=== PATIENT | female | born 1990 | race Caucasian/White ===

== ENCOUNTER 2016-11-29 14:54 | Emergency (ER) | payer OTHER ==
--- NOTE | 2016-11-29 17:51 | ED CLINICAL REPORT ---
Clinical Report - Physicians/Mid Levels [facility] [address] [place] [address] 11/29/2016 14:57 Patient: KAYCEE FISHER Time Seen: 16:03; initial patient contact. Arrived- By private vehicle. Historian- patient. HISTORY OF PRESENT ILLNESS Chief Complaint: VAGINAL BLEEDING. (( pt states she had a heavy episode of vaginal bleeding on with passing clots. She is unsure if she could be . States she had no bleeding for the rest of or yesterday. 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 States she doesn't feel like she is on her period right now, as usually she has severe cramping with menses). Onset. (2 days ago). pt is unsure if bleeding is actually vaginal or possibly rectal as it also seems to be happening when straining to have a bowel movement.). Still present. The patient has had pelvic pain, lower back pain and abnormal bleeding. No abdominal pain, missed period(s), pain with urination, urinary frequency or urgency of urination. Sexually active. Does not use control measures. Denies current . Similar symptoms previously: None. Recent medical care: Not recently seen/assessed. REVIEW OF SYSTEMS No nausea, vomiting, diarrhea or black stools. All systems otherwise negative, except as recorded above. PAST HISTORY See nurses notes. Problems: Fall. Contusion. Laceration. Tetanus Status. Additional Surgeries: no known surgeries. Medications: None. Allergies: No Known Drug Allergy. SOCIAL HISTORY Alcohol use. History of drug use: marijuana. FAMILY HISTORY Negative. ADDITIONAL NOTES The nursing notes have been reviewed with agreement regarding the chief complaint, HPI, ROS, PMH and patient medications and allergies. PHYSICAL EXAM Vital Signs: 11/29/2016 15:36 BP: 121/77. HR: 81. RR: 16. O2 saturation: 99%. Temp: 98.4 F. Have been reviewed. Appearance: Alert. Oriented X3. No acute distress. HEENT: Normal external inspection. ENT: Pharynx normal. Neck: Neck supple. CVS: Heart sounds normal. Abdomen: Soft and nontender. No organomegaly. No mass. : External inspection normal. Speculum exam normal. No vaginal discharge or bleeding. Cervical os closed. No cervicitis. Bimanual exam normal. No tenderness present on bimanual exam. Uterus not enlarged. No uterine tenderness. No tenderness with movement of the cervix. No pelvic mass. Rectal: Weakly heme-positive stool; hemoccult quality assurance advisor check passed. (POC test reference range: negative). No blood visibly present. Rectal exam nontender. Skin: Skin warm and dry. Normal skin color. No rash. Normal skin turgor. Extremities: No lower extremity edema. Neuro: Oriented X 3. LABS, X-RAYS, AND EKG Laboratory Tests: Urine: (RICCI: 11/29/2016 15:42) ( [facility] 11/29/2016 16:24) Final results Test Result Flag Units (Reference) URINE NEGATIVE CBC w Diff: (RICCI: 11/29/2016 16:44) ( [facility] 11/29/2016 17:10) Final results Test Result Flag Units (Reference) WHITE BLOOD COUNT 8.0 K/uL (4.5-11.5) RED BLOOD COUNT 4.34 M/uL (4.00-5.20) HEMOGLOBIN 13.1 gm/dL (12.0-16.0) HEMATOCRIT 38.7 % (36.0-46.0) MEAN CELL VOLUME 89 fL (80-100) MEAN CORPUSCULAR HGB 30 pg (26-34) MEAN CORPUSCULAR HGB CONC 34 g/dL (31-37) RED CELL DISTRIBUTION WIDTH 13.6 % (11.6-14.8) PLATELET COUNT 298 K/uL (150-400) NEUTROPHIL % 59.6 % (50-75) LYMPH % 28.1 % (25-40) MONO % 10.6 % (3-14) EOSINOPHIL % 1.3 % (0-4) BASOPHIL % 0.4 % (0-2) CMP: (RICCI: 11/29/2016 16:44) ( [facility] 11/29/2016 17:21) Final results Test Result Flag Units (Reference) GLUCOSE 103 mg/dL (70-110) BUN 13 mg/dL (7-18) CREATININE 0.7 mg/dL (0.6-1.3) Estimated GFR >60 mL/min Estimated GFR- >60 mL/min Note: Persistent reduction over 3 months in eGFR<60 mL/min/1.73 m2 defines CKD. Patients with eGFR values>=60 mL/min/1.73 m2 may also have CKD if evidence ofpersistent proteinuria. Additional information may be foundat www.kidney.org. SODIUM 141 mmol/L (136-145) POTASSIUM 3.8 mmol/L (3.5-5.1) CHLORIDE 102 mmol/L (98-107) CARBON DIOXIDE 27 mmol/L (21-32) CALCIUM 8.9 mg/dL (8.5-10.1) TOTAL PROTEIN 7.8 g/dL (6.4-8.2) ALBUMIN 4.0 g/dL (3.3-5.0) BILIRUBIN, TOTAL 0.3 mg/dL (0.0-1.0) ALKALINE PHOSPHATASE 61 U/L (46-116) AST (SGOT) 13 L U/L (15-37) ALT (SGPT) 21 U/L (12-78) . PROGRESS AND PROCEDURES Course of Care: pt is hemodynamically stable, with suspected rectal bleed as opposed to vaginal bleed as her vaginal examination was normal, and her hemeoccult was mildly positive with no obvious mass, no sg blood seen, and possible posterior internal hemorrhoid. pt is allergic to shellfish, so deferred CT scannin with contrast. will refer to surgery for colonoscopy, her hemaglobin/hct were wnl. she was urged to see pcp Thursday for follow up and obtain surgical consult for colonoscopy. Patient is stable. Symptoms better. CLINICAL IMPRESSION Possible rectal bleed from internal hemorrhoids. INSTRUCTIONS No restrictions to activity. Rest. Drink plenty of fluids. (your blood work is all good, however you need further workup for your continued weight loss and rectal bleed. it is presumed you have an internal hemorrhoid, however you could have a more serious condition. please make an appointment with your doctor Thursday for follow up and if you have another episode of rectal bleeding, see ER in [place].). Warnings: Further evaluation is necessary. It is very important to follow up with a physician. Follow-up: Return to the emergency department if not better. Follow up with your doctor if not better. Follow up with a surgeon- as recommended by your primary care physician. Reason for referral: colonoscopy for evaluation of rectal bleeding. Understanding of the discharge instructions verbalized by patient. (Electronically signed by Margy Dockery PA-C 11/29/2016 22:09)
--- NOTE | 2016-11-29 17:51 | ED NURSING NOTES ---
Clinical Report - Nurses [facility] [address] [place] [address] 11/29/2016 14:57 Patient: KAYCEE FISHER TRIAGE Triage time 15:27. Acuity: LEVEL 3. Chief Complaint: VAGINAL BLEED. 15:36 11/29/16. Alert. No acute distress. --15:36 Frederick Omalley R.N. 15:36 11/29/16. BP: 121/77. HR: 81. RR: 16. O2 saturation: 99%. Temp: 98.4 F. Pain level now 10/17. --15:36 Frederick Omalley R.N. Weight: 39.9 kg stated. Height/Length: 64 inches Per Patient. BMI: 15.1. --15:31 Frederick Omalley R.N. Medications None. --15:36 Frederick Omalley R.N. Medication/allergy information source: the patient. --15:36 Frederick Omalley R.N. Allergies No Known Drug Allergy. --15:36 Frederick Omalley R.N. History Arrived by private vehicle. Historian: patient. Accompanied by family. Primary physician (ingrid). ( pt states she had a heavy episode of vaginal bleeding on with passing clots. She is unsure if she could be . States she had no bleeding for the rest of or yesterday. 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 States she doesn't feel like she is on her period right now, as usually she has severe cramping with menses). Onset. (2 days ago). Treatment COST ESTIMATING CLERK: None. PAST MEDICAL HX: Last normal menstrual period- 10/31/16. 0. Para 0. Abortions 0. No contraception. SOCIAL HX: Smoker- current status unknown (vape). Occasional alcohol use. History of drug use: marijuana. FALL RISK ASSESSMENT: Fall risk assessment completed. No fall risk identified. NUTRITIONAL RISK ASSESSMENT: The nutritional risk assessment revealed no deficiencies. FUNCTIONAL ASSESSMENT: Functional assessment: no impairments noted. LEARNING NEEDS ASSESSMENT: The learning needs assessment revealed no barriers. SKIN INTEGRITY ASSESSMENT: Skin integrity risk assessment completed. No skin integrity risk identified. --15:36 Frederick Omalley R.N. ADDITIONAL SURGERIES: no known surgeries. Interventions ID band on patient. To treatment room. --15:36 Frederick Omalley R.N. PHYSICAL ASSESSMENT 15:37 11/29/16. Ambulatory to room. GENERAL / NEURO / PSYCH: Alert. Oriented X 4. Appears in no acute distress. RESPIRATORY: Respirations not labored. CVS: Capillary refill less than 2 seconds. GI / : Abdomen soft. SKIN: Skin is warm and dry. --15:37 Frederick Omalley R.N. NURSING PROGRESS NOTES 16:52 11/29/2016 Site #1 started via IV in the left upper arm with an 20g angiocath, with aseptic technique and good blood return; one attempt. Blood drawn: rainbow set. Labeled in the presence of the patient and sent to the lab. Saline lock flushed with 10 mL saline. --16:52 Lanie Muir R.N. 18:16 11/29/2016 Site #1 removed upon discharge. Bandage applied. --18:16 Lanie Muir R.N. DISPOSITION / DISCHARGE Departure time: 18:28 Nov 29 2016. Condition at departure: improved. The following issues were addressed: comfort issues. No learning barriers present. Discharge instructions provided and reviewed with the patient. Reviewed referral to a surgeon and primary care physician. Patient verbalized understanding. Written instructions provided in Burmese. The patient was discharged home and accompanied by friend. She left the Emergency Department ambulatory and via private vehicle. Driving (friend). FALL RISK ASSESSMENT: Fall risk assessment completed. No fall risk identified. --18:28 Lanie Muir R.N. 18:27 11/29/16. BP: 105/67. HR: 70. RR: 16. O2 saturation: 99%. Pain level now: 11/17. --18:28 Lanie Muir R.N. Locked/Released at 11/30/2016 23:14 by Lanie Muir R.N.
--- NOTE | 2016-11-29 17:51 | ED ORDER SUMMARY ---
..... Patient: KAYCEE FISHER N OrderSheet [facility] VisitID: [id number] [place] [address] 26y, F Registration Date/Time: 11/29/2016 ORDER SHEET Weight: 39.9 kg (stated) Allergies: No Known Drug Allergy GENERAL ORDERS: Urine Urgent (16:09 11/29/2016 ABlanchette PA-C) (16:14 KKnebel R.N.) CT Abd/Pel w Cont (No) (pending) (cachexia, with rectal bleeding for 3 days) Urgent (16:44 11/29/2016 ABlanchette PA-C) (Ack 16:47 OSnell) (18:21 KKnebel R.N.) CBC w Diff Urgent (16:45 11/29/2016 ABlanchette PA-C) (Ack 16:47 OSnell) (16:52 KKnebel R.N.) CMP Urgent (16:45 11/29/2016 ABlanchette PA-C) (Ack 16:47 OSnell) (16:52 KKnebel R.N.) MEDICATION ORDERS: IV FLUIDS: ORDER SHEET NOTES: [Electronically signed by Margy Dockery PA-C (22:09 11/29/2016)] [Electronically signed by Lanie Muir R.N. (23:14 11/30/2016)] [Electronically locked/signed by Lanie Muir R.N. (23:14 11/30/2016)]
--- NOTE | 2016-11-29 17:51 | ED ORDER SUMMARY ---
..... Patient: KAYCEE FISHER N OrderSheet [facility] VisitID: [id number] [place] [address] 26y, F Registration Date/Time: 11/29/2016 ORDER SHEET Weight: 39.9 kg (stated) Allergies: No Known Drug Allergy GENERAL ORDERS: Urine Urgent (16:09 11/29/2016 ABlanchette PA-C) (16:14 KKnebel R.N.) CT Abd/Pel w Cont (No) (pending) (cachexia, with rectal bleeding for 3 days) Urgent (16:44 11/29/2016 ABlanchette PA-C) (Ack 16:47 OSnell) (18:21 KKnebel R.N.) CBC w Diff Urgent (16:45 11/29/2016 ABlanchette PA-C) (Ack 16:47 OSnell) (16:52 KKnebel R.N.) CMP Urgent (16:45 11/29/2016 ABlanchette PA-C) (Ack 16:47 OSnell) (16:52 KKnebel R.N.) MEDICATION ORDERS: IV FLUIDS: ORDER SHEET NOTES: [Electronically signed by Margy Dockery PA-C (22:09 11/29/2016)] [Electronically signed by Lanie Muir R.N. (23:14 11/30/2016)] [Electronically locked/signed by Lanie Muir R.N. (23:14 11/30/2016)]
--- NOTE | 2016-11-29 17:51 | ED NURSING NOTES ---
Clinical Report - Nurses [facility] [address] [place] [address] 11/29/2016 14:57 Patient: KAYCEE FISHER TRIAGE Triage time 15:27. Acuity: LEVEL 3. Chief Complaint: VAGINAL BLEED. 15:36 11/29/16. Alert. No acute distress. --15:36 Frederick Omalley R.N. 15:36 11/29/16. BP: 121/77. HR: 81. RR: 16. O2 saturation: 99%. Temp: 98.4 F. Pain level now 10/17. --15:36 Frederick Omalley R.N. Weight: 39.9 kg stated. Height/Length: 64 inches Per Patient. BMI: 15.1. --15:31 Frederick Omalley R.N. Medications None. --15:36 Frederick Omalley R.N. Medication/allergy information source: the patient. --15:36 Frederick Omalley R.N. Allergies No Known Drug Allergy. --15:36 Frederick Omalley R.N. History Arrived by private vehicle. Historian: patient. Accompanied by family. Primary physician (ingrid). ( pt states she had a heavy episode of vaginal bleeding on with passing clots. She is unsure if she could be . States she had no bleeding for the rest of or yesterday. 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 States she doesn't feel like she is on her period right now, as usually she has severe cramping with menses). Onset. (2 days ago). Treatment DIGITAL DEVELOPER: None. PAST MEDICAL HX: Last normal menstrual period- 10/31/16. 0. Para 0. Abortions 0. No contraception. SOCIAL HX: Smoker- current status unknown (vape). Occasional alcohol use. History of drug use: marijuana. FALL RISK ASSESSMENT: Fall risk assessment completed. No fall risk identified. NUTRITIONAL RISK ASSESSMENT: The nutritional risk assessment revealed no deficiencies. FUNCTIONAL ASSESSMENT: Functional assessment: no impairments noted. LEARNING NEEDS ASSESSMENT: The learning needs assessment revealed no barriers. SKIN INTEGRITY ASSESSMENT: Skin integrity risk assessment completed. No skin integrity risk identified. --15:36 Frederick Omalley R.N. ADDITIONAL SURGERIES: no known surgeries. Interventions ID band on patient. To treatment room. --15:36 Frederick Omalley R.N. PHYSICAL ASSESSMENT 15:37 11/29/16. Ambulatory to room. GENERAL / NEURO / PSYCH: Alert. Oriented X 4. Appears in no acute distress. RESPIRATORY: Respirations not labored. CVS: Capillary refill less than 2 seconds. GI / : Abdomen soft. SKIN: Skin is warm and dry. --15:37 Frederick Omalley R.N. NURSING PROGRESS NOTES 16:52 11/29/2016 Site #1 started via IV in the left upper arm with an 20g angiocath, with aseptic technique and good blood return; one attempt. Blood drawn: rainbow set. Labeled in the presence of the patient and sent to the lab. Saline lock flushed with 10 mL saline. --16:52 Lanie Muir R.N. 18:16 11/29/2016 Site #1 removed upon discharge. Bandage applied. --18:16 Lanie Muir R.N. DISPOSITION / DISCHARGE Departure time: 18:28 Nov 29 2016. Condition at departure: improved. The following issues were addressed: comfort issues. No learning barriers present. Discharge instructions provided and reviewed with the patient. Reviewed referral to a surgeon and primary care physician. Patient verbalized understanding. Written instructions provided in Stateless. The patient was discharged home and accompanied by friend. She left the Emergency Department ambulatory and via private vehicle. Driving (friend). FALL RISK ASSESSMENT: Fall risk assessment completed. No fall risk identified. --18:28 Lanie Muir R.N. 18:27 11/29/16. BP: 105/67. HR: 70. RR: 16. O2 saturation: 99%. Pain level now: 11/17. --18:28 Lanie Muir R.N. Locked/Released at 11/30/2016 23:14 by Lanie Muir R.N.
--- NOTE | 2016-11-29 17:51 | ED CLINICAL REPORT ---
Clinical Report - Physicians/Mid Levels [facility] [address] [place] [address] 11/29/2016 14:57 Patient: KAYCEE FISHER Time Seen: 16:03; initial patient contact. Arrived- By private vehicle. Historian- patient. HISTORY OF PRESENT ILLNESS Chief Complaint: VAGINAL BLEEDING. (( pt states she had a heavy episode of vaginal bleeding on with passing clots. She is unsure if she could be . States she had no bleeding for the rest of or yesterday. 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 States she doesn't feel like she is on her period right now, as usually she has severe cramping with menses). Onset. (2 days ago). pt is unsure if bleeding is actually vaginal or possibly rectal as it also seems to be happening when straining to have a bowel movement.). Still present. The patient has had pelvic pain, lower back pain and abnormal bleeding. No abdominal pain, missed period(s), pain with urination, urinary frequency or urgency of urination. Sexually active. Does not use control measures. Denies current . Similar symptoms previously: None. Recent medical care: Not recently seen/assessed. REVIEW OF SYSTEMS No nausea, vomiting, diarrhea or black stools. All systems otherwise negative, except as recorded above. PAST HISTORY See nurses notes. Problems: Fall. Contusion. Laceration. Tetanus Status. Additional Surgeries: no known surgeries. Medications: None. Allergies: No Known Drug Allergy. SOCIAL HISTORY Alcohol use. History of drug use: marijuana. FAMILY HISTORY Negative. ADDITIONAL NOTES The nursing notes have been reviewed with agreement regarding the chief complaint, HPI, ROS, PMH and patient medications and allergies. PHYSICAL EXAM Vital Signs: 11/29/2016 15:36 BP: 121/77. HR: 81. RR: 16. O2 saturation: 99%. Temp: 98.4 F. Have been reviewed. Appearance: Alert. Oriented X3. No acute distress. HEENT: Normal external inspection. ENT: Pharynx normal. Neck: Neck supple. CVS: Heart sounds normal. Abdomen: Soft and nontender. No organomegaly. No mass. : External inspection normal. Speculum exam normal. No vaginal discharge or bleeding. Cervical os closed. No cervicitis. Bimanual exam normal. No tenderness present on bimanual exam. Uterus not enlarged. No uterine tenderness. No tenderness with movement of the cervix. No pelvic mass. Rectal: Weakly heme-positive stool; hemoccult software quality analyst check passed. (POC test reference range: negative). No blood visibly present. Rectal exam nontender. Skin: Skin warm and dry. Normal skin color. No rash. Normal skin turgor. Extremities: No lower extremity edema. Neuro: Oriented X 3. LABS, X-RAYS, AND EKG Laboratory Tests: Urine: (RICCI: 11/29/2016 15:42) ( [facility] 16:24) Final results Test Result Flag Units (Reference) URINE NEGATIVE CBC w Diff: (RICCI: 11/29/2016 16:44) ( [facility] 11/29/2016 17:10) Final results Test Result Flag Units (Reference) WHITE BLOOD COUNT 8.0 K/uL (4.5-11.5) RED BLOOD COUNT 4.34 M/uL (4.00-5.20) HEMOGLOBIN 13.1 gm/dL (12.0-16.0) HEMATOCRIT 38.7 % (36.0-46.0) MEAN CELL VOLUME 89 fL (80-100) MEAN CORPUSCULAR HGB 30 pg (26-34) MEAN CORPUSCULAR HGB CONC 34 g/dL (31-37) RED CELL DISTRIBUTION WIDTH 13.6 % (11.6-14.8) PLATELET COUNT 298 K/uL (150-400) NEUTROPHIL % 59.6 % (50-75) LYMPH % 28.1 % (25-40) MONO % 10.6 % (3-14) EOSINOPHIL % 1.3 % (0-4) BASOPHIL % 0.4 % (0-2) CMP: (RICCI: 11/29/2016 16:44) ( [facility] 11/29/2016 17:21) Final results Test Result Flag Units (Reference) GLUCOSE 103 mg/dL (70-110) BUN 13 mg/dL (7-18) CREATININE 0.7 mg/dL (0.6-1.3) Estimated GFR >60 mL/min Estimated GFR- >60 mL/min Note: Persistent reduction over 3 months in eGFR<60 mL/min/1.73 m2 defines CKD. Patients with eGFR values>=60 mL/min/1.73 m2 may also have CKD if evidence ofpersistent proteinuria. Additional information may be foundat www.kidney.org. SODIUM 141 mmol/L (136-145) POTASSIUM 3.8 mmol/L (3.5-5.1) CHLORIDE 102 mmol/L (98-107) CARBON DIOXIDE 27 mmol/L (21-32) CALCIUM 8.9 mg/dL (8.5-10.1) TOTAL PROTEIN 7.8 g/dL (6.4-8.2) ALBUMIN 4.0 g/dL (3.3-5.0) BILIRUBIN, TOTAL 0.3 mg/dL (0.0-1.0) ALKALINE PHOSPHATASE 61 U/L (46-116) AST (SGOT) 13 L U/L (15-37) ALT (SGPT) 21 U/L (12-78) . PROGRESS AND PROCEDURES Course of Care: pt is hemodynamically stable, with suspected rectal bleed as opposed to vaginal bleed as her vaginal examination was normal, and her hemeoccult was mildly positive with no obvious mass, no sg blood seen, and possible posterior internal hemorrhoid. pt is allergic to shellfish, so deferred CT scannin with contrast. will refer to surgery for colonoscopy, her hemaglobin/hct were wnl. she was urged to see pcp Thursday for follow up and obtain surgical consult for colonoscopy. Patient is stable. Symptoms better. CLINICAL IMPRESSION Possible rectal bleed from internal hemorrhoids. INSTRUCTIONS No restrictions to activity. Rest. Drink plenty of fluids. (your blood work is all good, however you need further workup for your continued weight loss and rectal bleed. it is presumed you have an internal hemorrhoid, however you could have a more serious condition. please make an appointment with your doctor Thursday for follow up and if you have another episode of rectal bleeding, see ER in [place].). Warnings: Further evaluation is necessary. It is very important to follow up with a physician. Follow-up: Return to the emergency department if not better. Follow up with your doctor if not better. Follow up with a surgeon- as recommended by your primary care physician. Reason for referral: colonoscopy for evaluation of rectal bleeding. Understanding of the discharge instructions verbalized by patient. (Electronically signed by Margy Dockery PA-C 11/29/2016 22:09)
--- NOTE | 2016-11-30 23:14 | ED MAR SUMMARY ---
..... Medication Administration Record [facility] [address] [place], [place] [id number] Patient: KAYCEE FISHER Visit ID: [id number] 26y, F Weight: 39.9 kg Height/Length: 64 in BMI: 15.1 ALLERGIES: No Known Drug Allergy
--- NOTE | 2016-11-30 23:14 | ED MED RECONCILIATION SUMMARY ---
Patient: KAYCEE FISHER Medication Reconciliation Report [facility] VisitID: [id number] [address] [place] [address] 26y, F Registration Date/Time: 11/29/2016 Weight: 39.9 kg Height/Length: 64 in. BMI: 15.1 ALLERGIES: No Known Drug Allergy The patient's Home Medications are listed below: NONE. The source(s) of the original Home Medication information: patient The following Medications were given to the patient in the Emergency Department: None. The following Medications were prescribed to the patient: None.
--- NOTE | 2016-11-30 23:14 | ED MAR SUMMARY ---
..... Medication Administration Record [facility] [address] [place], [place] [id number] Patient: KAYCEE FISHER Visit ID: [id number] 26y, F Weight: 39.9 kg Height/Length: 64 in BMI: 15.1 ALLERGIES: No Known Drug Allergy
--- NOTE | 2016-11-30 23:14 | ED DISCHARGE INSTRUCTIONS ---
Patient: KAYCEE FISHER General Instructions [facility] VisitID: [id number] [place] [address] 26y, F Registration Date/Time: 11/29/2016 INSTRUCTIONS No restrictions to activity. Rest. Drink plenty of fluids. (your blood work is all good, however you need further workup for your continued weight loss and rectal bleed. it is presumed you have an internal hemorrhoid, however you could have a more serious condition. please make an appointment with your doctor Thursday for follow up and if you have another episode of rectal bleeding, see ER in [place].). Warnings: Further evaluation is necessary. It is very important to follow up with a physician. Follow-up: Return to the emergency department if not better. Follow up with your doctor if not better. Follow up with a surgeon- as recommended by your primary care physician. Reason for referral: colonoscopy for evaluation of rectal bleeding. Understanding of the discharge instructions verbalized by patient. No restrictions to activity. Rest. (Electronically signed by Margy Dockery PA-C 11/29/2016 22:09)
--- NOTE | 2016-11-30 23:14 | ED MED RECONCILIATION SUMMARY ---
Patient: KAYCEE FISHER Medication Reconciliation Report [facility] VisitID: [id number] [address] [place] [address] 26y, F Registration Date/Time: 11/29/2016 Weight: 39.9 kg Height/Length: 64 in. BMI: 15.1 ALLERGIES: No Known Drug Allergy The patient's Home Medications are listed below: NONE. The source(s) of the original Home Medication information: patient The following Medications were given to the patient in the Emergency Department: None. The following Medications were prescribed to the patient: None.
--- NOTE | 2016-11-30 23:14 | ED DISCHARGE INSTRUCTIONS ---
Patient: KAYCEE FISHER General Instructions [facility] VisitID: [id number] [place] [address] 26y, F Registration Date/Time: 11/29/2016 INSTRUCTIONS No restrictions to activity. Rest. Drink plenty of fluids. (your blood work is all good, however you need further workup for your continued weight loss and rectal bleed. it is presumed you have an internal hemorrhoid, however you could have a more serious condition. please make an appointment with your doctor Thursday for follow up and if you have another episode of rectal bleeding, see ER in [place].). Warnings: Further evaluation is necessary. It is very important to follow up with a physician. Follow-up: Return to the emergency department if not better. Follow up with your doctor if not better. Follow up with a surgeon- as recommended by your primary care physician. Reason for referral: colonoscopy for evaluation of rectal bleeding. Understanding of the discharge instructions verbalized by patient. No restrictions to activity. Rest. (Electronically signed by Margy Dockery PA-C 11/29/2016 22:09)
== END 2016-11-29 18:28 | disposition home or self-care (01) ==
LOC: ED SRH 14:54
DX: K62.5 Hemorrhage of anus and rectum (principal)
CPT/HCPCS: 90100; 93070; 95059